=== PATIENT | female | born 1990 | race Caucasian/White ===

== ENCOUNTER 2022-05-24 19:48 | Inpatient (IN) | payer OTHER ==
[~2022-05-24] VITALS: Ht 149.9 cm; Wt 78.9 kg
[~2022-05-24 19:48] MED LIST: SRTR100T
[2022-05-24 20:00] VITALS: BP 126/86
[2022-05-24 20:56] LABS: BILIRUBIN,URINE NEGATIVE (NEGATIVE); CLARITY,URINE CLEAR; COLOR,URINE YELLOW; GLUCOSE, URINE (UA) NEGATIVE (NEGATIVE); KETONES,URINE NEGATIVE (NEGATIVE); LEUKOCYTE ESTERASE ,URINE NEGATIVE (NEGATIVE); NITRITE,URINE NEGATIVE (NEGATIVE); PROTEIN,URINE NEGATIVE (NEGATIVE)
[2022-05-24 21:00] VITALS: BP 126/86
[2022-05-24 21:11] LABS: BACTERIA,URINE LARGE /HPF; RBC,URINE 0-2 /HPF; SQUAMOUS EPITHELIAL CELL,UR >50 /HPF; WBC,URINE 0-2 /HPF
[2022-05-24] MEDS ORDERED: MINERAL OIL 30 ML UDC TOP PRN (23:00)
[2022-05-24] MEDS: D5 LR IV SOLUTION 1,000 ML IV SCH (23:27)
[2022-05-24] MEDS ORDERED: AMPICILLIN 2,000 MG/14.8 ML (IV USE) ONE (23:30)
[2022-05-24] MEDS ORDERED: NS (IVPB) 50 ML ONE (23:30)
[2022-05-25] VITALS (69 sets, daily range): BP systolic 96–138; BP diastolic 55–87
[2022-05-25 03:42] LABS: HEMATOCRIT 34 % (35-52); HEMOGLOBIN 11.9 g/dL (11.5-16.0); MEAN CORPUSCULAR HEMOGLOBIN 30 pg (25-34); MEAN CORPUSCULAR VOLUME 85 fL (80-99); WHITE BLOOD COUNT 15.6 10^3/uL (4.3-11.0)
[2022-05-25 03:43] LABS: EOSINOPHILS % (AUTO) 1 % (0-10); LYMPHOCYTES % (AUTO) 14 % (12-44); MEAN CORPUSCULAR HGB CONC 35 g/dL (32-36); MEAN PLATELET VOLUME 11.5 fL (9.0-12.2); MONOCYTES % (AUTO) 6 % (0-12); NEUTROPHILS % (AUTO) 79 % (42-75); PLATELET COUNT 235 10^3/uL (130-400)
[2022-05-25 03:44] LABS: BASOPHILS % (AUTO) 0 % (0-10); EOSINOPHILS # (AUTO) 0.1 10^3/uL (0.0-0.3); LYMPHOCYTES # (AUTO) 2.2 X 10^3 (1.0-4.0); MONOCYTES # (AUTO) 0.9 X 10^3 (0.0-1.0); NEUTROPHILS # (AUTO) 12.7 X 10^3 (1.8-7.8)
[2022-05-25] MEDS: AMPICILLIN FOR IV USE 1,000 MG in NS (IVPB) 50 ML IV SCH ×5 (03:49→18:58)
[2022-05-25] MEDS: CATHETER FLUSH 10 ML SYR IV SCH ×2 (06:53→14:00)
[2022-05-25] MEDS ORDERED: LACTATED RINGERS 1,000 ML IV PRN (08:15)
[2022-05-25] MEDS: D5 LR IV SOLUTION 1,000 ML IV SCH ×3 (08:18→20:45)
[2022-05-25] MEDS ORDERED: fentaNYL 2 mcg/ml BUPIVA 0.125 100 ML ONE (08:40)
--- NOTE | 2022-05-25 08:52 | History & Physical-OB ---
OB - Chief Complaint & HPI Date/Time Date of Admission: Date of Admission: May 24, 2022 at 22:54 Date seen by a Provider: May 25, 2022 Time Seen by a Provider: 08:15 Chief Complaint/History OB-Reason for Admission/Chief: Rupture of Membranes Hx : 2 Hx Para: 0 Expected Date of Delivery: May 25, 2022 Gestational Age in Weeks: 40 Gestational Age in Days: 0 History of Labs A pos, antibody neg. RI. HIV/HepB/RPR neg. 1 hour glucola neg. GBS positive. Other 31 yo at 40 weeks today, on 05/23 at her routine Ob visit she noted she thought she might have some intermittent trickling of fluid, at that time sterile spec exam was negative for pooling, ferning and pH normal. She had an US with an MAGGIE of 9.1. On 05/24 she presented to Labor and Delivery with contractions and found to be 5 cm. After observation on Labor and Delivery she reported she felt a gush of fluid and ROM plus test was positive. She continued to progress through labor spontaneously. This morning, at time of my exam, she had bulging bag. Allergies and Home Medications Allergies Uncoded Allergies: NKDA (Allergy, Mild, 08/17/08) Patient Home Medication List Home Medication List Reviewed: Yes Vit No.124/Iron/FA ( Vitamin Tablet) 27 Mg Iron-800 Mcg Tablet, 1 EACH PO DAILY, (Reported) Entered as Reported by: QUANG DELCID on 05/25/22 1516 Last Action: New Order Discontinued Medications Sertraline Hcl (Zoloft) 100 Mg Tablet, (Reported) Entered as Reported by: ANDRE GLYNN on 08/17/08 0040 Last Action: Discontinued OB - History Hx of Present Ultrasounds: Normal mid trimester US Obstetrical Complications: None Medical Complications: None Information Induced Hypertension: No Maternal Gestational Diabetes: No Hemorrhage: No Obstetrical History Hx : 2 Hx Para: 0 Hx # Term Pregnancies: 0 Hx # Pregnancies: 0 Number of Living Children: 0 Hx Termination: No Hx Multiple Gestation: No Hx Ectopic : No Hx Stillbirth: No Hx Complication: No Hx Induced Hypertens: No Hx Maternal Gestational Diabet: No Hx Hemorrhage: No Patient Past Medical History PMHx: Denies SurgHx: Denies Social History/Family History Alcohol Use: Denies Use Recreational Drug Use: No Smoking Cessation: Never smoker Immunizations Influenza Vaccine Up-to-Date: No; Not Current First/Initial COVID19 Vaccine: 03/26/20 Second COVID19 Vaccination: 04/22/20 Third COVID19 Vaccination Date: 03/12/21 Tetanus Booster (TDap): Less than 5yrs (03/17/22) Rubella: immune RPR/VDRL: Negative GBS Status: Positive HBsAG: Negative OB - Admission Exam Physical Exam Vitals: Vital Signs 05/25/22 07:20 Temp 36.1 Pulse 94 Resp 18 B/P (MAP) 122/73 (89) Pulse Ox 97 O2 Delivery Room Air HEENT: NCAT Abdomen: Non tender Extremities: Normal Cervical Dilatation: 6cm Effacement: Other (90) Station: -3 Membranes: Ruptured (possible earlier rupture per HPI, bag AROM at time of exam) Amniotic Fluid: Clear Accelerations: Accelerations Present Decelerations: No Decelerations Short Term Variability: Present Bonsai Tender Variability: Average (6-25) Contractions on Admission: < 5 Minutes Apart Labs Laboratory Tests Test 05/24/22 20:00 05/24/22 22:30 05/24/22 23:42 Range/Units Urine Color YELLOW Urine Clarity CLEAR Urine pH 7.0 5-9 Urine Specific [place] 1.015 L 1.016-1.022 Urine Protein NEGATIVE NEGATIVE Urine Glucose (UA) NEGATIVE NEGATIVE Urine Ketones NEGATIVE NEGATIVE Urine Nitrite NEGATIVE NEGATIVE Urine Bilirubin NEGATIVE NEGATIVE Urine Urobilinogen 0.2 < = 1.0 MG/DL Urine Leukocyte Esterase NEGATIVE NEGATIVE Urine RBC (Auto) 3+ H NEGATIVE Urine RBC 0-2 /HPF Urine WBC 0-2 /HPF Urine Squamous Epithelial Cells >50 H /HPF Urine Crystals NONE /LPF Urine Bacteria LARGE H /HPF Urine Casts NONE /LPF Urine Mucus NEGATIVE /LPF Urine Culture Indicated NO Membranes Rupture POSITIVE White Blood Count 15.6 H 4.3-11.0 10^3/uL Red Blood Count 4.03 3.80-5.11 10^6/uL Hemoglobin 11.9 11.5-16.0 g/dL Hematocrit 34 L 35-52 % Mean Corpuscular Volume 85 80-99 fL Mean Corpuscular Hemoglobin 30 25-34 pg Mean Corpuscular Hemoglobin Concent 35 32-36 g/dL Red Cell Distribution Width 13.4 10.0-14.5 % Platelet Count 235 130-400 10^3/uL Mean Platelet Volume 11.5 9.0-12.2 fL Immature Granulocyte % (Auto) 0 % Neutrophils (%) (Auto) 79 H 42-75 % Lymphocytes (%) (Auto) 14 12-44 % Monocytes (%) (Auto) 6 0-12 % Eosinophils (%) (Auto) 1 0-10 % Basophils (%) (Auto) 0 0-10 % Neutrophils # (Auto) 12.7 H 1.8-7.8 X 10^3 Lymphocytes # (Auto) 2.2 1.0-4.0 X 10^3 Monocytes # (Auto) 0.9 0.0-1.0 X 10^3 Eosinophils # (Auto) 0.1 0.0-0.3 10^3/uL Basophils # (Auto) 0.0 0.0-0.1 10^3/uL Immature Granulocyte # (Auto) 0.1 0.0-0.1 10^3/uL OB - Assessment/Plan/Diagnosis Assessment Admission Dx Active labor at full term 40 weeks gestation GBS positive Admission Status: Inpatient Order (span 2 midnights) Reason for Inpatient Admission: Labor, delivery and course Plan Plan: Expectant Management (AROM of forebag done at time of exam, ampicillin for GBS positive) QUANG DELCID MD May 25, 2022 08:52
[2022-05-25] MEDS ORDERED: BUPIVACAINE 0.25% 10 ML (SENSORCAINE) VIAL ONE (09:26)
[2022-05-25] MEDS ORDERED: fentaNYL INJ 100 MCG/2 ML AMP ONE (09:26)
[2022-05-25] MEDS ORDERED: LACTATED RINGERS 1,000 ML IV ONE ×2 (10:00)
[2022-05-25] MEDS ORDERED: fentaNYL INJ 100 MCG/2 ML AMP INJ ONE (10:00)
[2022-05-25] MEDS ORDERED: NALOXONE 0.4 MG/ML 1 ML (NARCAN) VIAL IV PRN (10:00)
[2022-05-25] MEDS ORDERED: ONDANSETRON 4 MG/2 ML (SDV) Z0FRAN IV PRN (10:00)
[2022-05-25] MEDS: fentaNYL 2 mcg/ml BUPIVA 0.125 100 ML EPI SCH ×2 (10:03→17:47)
[2022-05-25] MEDS ORDERED: OXYTOCIN PRE-MIX DRIP 500 ML IV ONE (13:57)
[2022-05-25] MEDS ORDERED: OXYTOCIN PRE-MIX DRIP 500 ML IV SCH ×2 (14:30→23:15)
[2022-05-25] MEDS ORDERED: PREN-142 PO (15:16)
--- NOTE | 2022-05-25 15:31 | Labor Progress Note ---
Labor Progress Note Labor Progress Note Date Seen by Provider: May 25, 2022 Time Seen by Provider: 14:15 Subjective: Pt denies complaints. Objective: Cervical exam: /-2 Consistency: soft Position: anterior Presentation: vertex heart tones: 150 beats per minute, moderate variability, no decels Tocometer: 2-3 ctx/10 minutes Assessment/Plan: Shama Johns is a 31 /Para 2 / 0,Gestational Age (wks)40 here for active labor. Has had periods of tachycardia and decreased variability, but other periods reassuring. Afebrile. Contractions q2-5 and has had minimal change from last check 2 hours ago, discussed augmentation with pitocin given concern for prolonged rupture and intermittent mild tachycardia, and patient was in agreement. CEFM/TOCO Start pitocin Anesthesia: Epidural Anticipate vaginal delivery. Vitals - Labs Vital Signs - I&O Vital Signs Date Time Temp Pulse Resp B/P (MAP) Pulse Ox O2 Delivery O2 Flow Rate FiO2 05/25/22 14:50 86 18 120/69 (86) Room Air 05/25/22 14:35 110 18 106/66 (79) Room Air 05/25/22 14:20 111 18 111/67 (82) Room Air 05/25/22 14:05 36.6 95 18 114/70 (85) Room Air 05/25/22 13:50 90 18 121/74 (90) Room Air 05/25/22 13:35 107 18 124/79 (94) Room Air 05/25/22 13:20 90 18 121/76 (91) Room Air 05/25/22 13:05 36.7 93 18 127/76 (93) Room Air 05/25/22 12:50 93 18 123/73 (90) Room Air 05/25/22 12:35 116 18 123/77 (92) Room Air 05/25/22 12:20 115 18 126/74 (91) Room Air 05/25/22 12:05 121 18 122/71 (88) Room Air 05/25/22 11:50 89 18 118/67 (84) Room Air 05/25/22 11:35 36.3 114 18 129/84 (99) Room Air 05/25/22 11:20 95 18 127/70 (89) Room Air 05/25/22 11:05 86 18 130/77 (94) Room Air 05/25/22 10:50 36.0 111 18 109/58 (75) Room Air 05/25/22 10:35 89 18 115/55 (75) Room Air 05/25/22 10:30 83 18 111/59 (76) Room Air 05/25/22 10:28 77 18 110/57 (74) Room Air 05/25/22 10:26 82 18 96/56 (69) Room Air 05/25/22 10:15 108 18 110/75 (87) Room Air 05/25/22 10:15 36.0 05/25/22 10:10 87 18 121/68 (85) Room Air 05/25/22 10:05 94 18 117/69 (85) Room Air 05/25/22 10:00 95 18 110/64 (79) Room Air 05/25/22 09:55 96 18 109/62 (78) Room Air 05/25/22 09:50 96 18 117/69 (85) Room Air 05/25/22 09:45 98 18 117/71 (86) Room Air 05/25/22 09:42 104 18 116/73 (87) Room Air 05/25/22 09:39 107 18 112/68 (83) Room Air 05/25/22 09:36 104 18 123/72 (89) 97 Room Air 05/25/22 09:33 110 18 121/71 (88) 98 Room Air 05/25/22 09:30 113 18 125/87 (100) 97 Room Air 05/25/22 09:00 36.4 112 18 136/82 (100) Room Air 05/25/22 08:10 36.1 05/25/22 07:20 36.1 94 18 122/73 (89) 97 Room Air 05/25/22 07:00 Room Air 05/25/22 06:00 Room Air 05/25/22 05:00 Room Air 05/25/22 04:00 Room Air 05/25/22 03:00 92 18 125/82 (96) Room Air 05/25/22 02:00 36.6 18 Room Air 05/25/22 01:00 36.9 93 18 119/78 (92) Room Air 05/25/22 00:00 18 Room Air 05/24/22 23:00 18 Room Air 05/24/22 22:00 18 Room Air 05/24/22 21:00 36.8 96 18 126/86 (99) 96 Room Air 05/24/22 20:00 36.8 96 18 96 Room Air I & O 05/25/22 07:00 Intake Total 114.8 ml Balance 114.8 ml Labs Laboratory Tests 05/24/22 20:00: Urine Color YELLOW, Urine Clarity CLEAR, Urine pH 7.0, Urine Specific [place] 1.015L, Urine Protein NEGATIVE, Urine Glucose (UA) NEGATIVE, Urine Ketones NEGATIVE, Urine Nitrite NEGATIVE, Urine Bilirubin NEGATIVE, Urine Urobilinogen 0.2, Urine Leukocyte Esterase NEGATIVE, Urine RBC (Auto) 3+H, Urine RBC 0-2, Urine WBC 0-2, Urine Squamous Epithelial Cells >50H, Urine Crystals NONE, Urine Bacteria LARGEH, Urine Casts NONE, Urine Mucus NEGATIVE, Urine Culture Indicated NO 05/24/22 22:30: Membranes Rupture POSITIVE 05/24/22 23:42: White Blood Count 15.6H, Red Blood Count 4.03, Hemoglobin 11.9, Hematocrit 34L, Mean Corpuscular Volume 85, Mean Corpuscular Hemoglobin 30, Mean Corpuscular Hemoglobin Concent 35, Red Cell Distribution Width 13.4, Platelet Count 235, Mean Platelet Volume 11.5, Immature Granulocyte % (Auto) 0, Neutrophils (%) (Auto) 79H, Lymphocytes (%) (Auto) 14, Monocytes (%) (Auto) 6, Eosinophils (%) (Auto) 1, Basophils (%) (Auto) 0, Neutrophils # (Auto) 12.7H, Lymphocytes # (Auto) 2.2, Monocytes # (Auto) 0.9, Eosinophils # (Auto) 0.1, Basophils # (Auto) 0.0, Immature Granulocyte # (Auto) 0.1 QUANG DELCID MD May 25, 2022 15:31
[2022-05-25 16:17] LABS: BASOPHILS % (AUTO) 0 % (0-10); EOSINOPHILS % (AUTO) 0 % (0-10); HEMATOCRIT 35 % (35-52); HEMOGLOBIN 11.7 g/dL (11.5-16.0); LYMPHOCYTES # (AUTO) 1.1 X 10^3 (1.0-4.0); LYMPHOCYTES % (AUTO) 6 % (12-44); MEAN CORPUSCULAR HEMOGLOBIN 30 pg (25-34); MEAN CORPUSCULAR HGB CONC 34 g/dL (32-36); MEAN CORPUSCULAR VOLUME 87 fL (80-99); MEAN PLATELET VOLUME 11.4 fL (9.0-12.2); MONOCYTES % (AUTO) 5 % (0-12); NEUTROPHILS # (AUTO) 16.1 X 10^3 (1.8-7.8); NEUTROPHILS % (AUTO) 88 % (42-75); PLATELET COUNT 219 10^3/uL (130-400); WHITE BLOOD COUNT 18.2 10^3/uL (4.3-11.0)
--- NOTE | 2022-05-25 18:53 | Labor Progress Note ---
Labor Progress Note Labor Progress Note Date Seen by Provider: May 25, 2022 Time Seen by Provider: 18:35 Subjective: Pt denies complaints. Objective: Cervical exam: Anterior lip/90/+1 Consistency: soft Position: anterior Presentation: vertex heart tones: 160 beats per minute, minimal variability, accel noted with scalp stim Tocometer: 5 ctx/10 minutes Assessment/Plan: Shama Johns is a (31 /Para 2 / 0,Gestational Age (wks)40 here for active labor. status has continued to be intermittently category II with minimal variability without decelerations, but also with periods of moderate variability. At time of exam, acceleration occurred with check, and she is nearing completion. Continue to monitor closely. CEFM/TOCO Continue pitocin Anesthesia: Epidural Anticipate vaginal delivery. Vitals - Labs Vital Signs - I&O Vital Signs Date Time Temp Pulse Resp B/P (MAP) Pulse Ox O2 Delivery O2 Flow Rate FiO2 05/25/22 18:35 36.4 95 18 120/74 (89) Room Air 05/25/22 18:05 99 18 121/77 (92) Room Air 05/25/22 17:50 88 18 122/77 (92) Room Air 05/25/22 17:35 86 18 113/75 (88) Room Air 05/25/22 17:20 35.6 86 18 133/77 (95) Room Air 05/25/22 17:05 83 18 130/77 (94) Room Air 05/25/22 16:35 85 18 138/85 (102) 98 Room Air 05/25/22 16:20 83 18 134/82 (99) 98 Room Air 05/25/22 16:05 36.7 99 18 129/72 (91) 96 Room Air 05/25/22 15:50 85 18 112/61 (78) Room Air 05/25/22 15:35 85 18 104/56 (72) Room Air 05/25/22 15:20 105 18 112/63 (79) Room Air 05/25/22 15:05 37.6 93 18 119/66 (83) Room Air 05/25/22 14:50 86 18 120/69 (86) Room Air 05/25/22 14:35 110 18 106/66 (79) Room Air 05/25/22 14:20 111 18 111/67 (82) Room Air 05/25/22 14:05 36.6 95 18 114/70 (85) Room Air 05/25/22 13:50 90 18 121/74 (90) Room Air 05/25/22 13:35 107 18 124/79 (94) Room Air 05/25/22 13:20 90 18 121/76 (91) Room Air 05/25/22 13:05 36.7 93 18 127/76 (93) Room Air 05/25/22 12:50 93 18 123/73 (90) Room Air 05/25/22 12:35 116 18 123/77 (92) Room Air 05/25/22 12:20 115 18 126/74 (91) Room Air 05/25/22 12:05 121 18 122/71 (88) Room Air 05/25/22 11:50 89 18 118/67 (84) Room Air 05/25/22 11:35 36.3 114 18 129/84 (99) Room Air 05/25/22 11:20 95 18 127/70 (89) Room Air 05/25/22 11:05 86 18 130/77 (94) Room Air 05/25/22 10:50 36.0 111 18 109/58 (75) Room Air 05/25/22 10:35 89 18 115/55 (75) Room Air 05/25/22 10:30 83 18 111/59 (76) Room Air 05/25/22 10:28 77 18 110/57 (74) Room Air 05/25/22 10:26 82 18 96/56 (69) Room Air 05/25/22 10:15 108 18 110/75 (87) Room Air 05/25/22 10:15 36.0 05/25/22 10:10 87 18 121/68 (85) Room Air 05/25/22 10:05 94 18 117/69 (85) Room Air 05/25/22 10:00 95 18 110/64 (79) Room Air 05/25/22 09:55 96 18 109/62 (78) Room Air 05/25/22 09:50 96 18 117/69 (85) Room Air 05/25/22 09:45 98 18 117/71 (86) Room Air 05/25/22 09:42 104 18 116/73 (87) Room Air 05/25/22 09:39 107 18 112/68 (83) Room Air 05/25/22 09:36 104 18 123/72 (89) 97 Room Air 05/25/22 09:33 110 18 121/71 (88) 98 Room Air 05/25/22 09:30 113 18 125/87 (100) 97 Room Air 05/25/22 09:00 36.4 112 18 136/82 (100) Room Air 05/25/22 08:10 36.1 05/25/22 07:20 36.1 94 18 122/73 (89) 97 Room Air 05/25/22 07:00 18 82 Room Air 05/25/22 06:00 Room Air 05/25/22 05:00 Room Air 05/25/22 04:00 Room Air 05/25/22 03:00 92 18 125/82 (96) Room Air 05/25/22 02:00 36.6 18 Room Air 05/25/22 01:00 36.9 93 18 119/78 (92) Room Air 05/25/22 00:00 18 Room Air 05/24/22 23:00 18 Room Air 05/24/22 22:00 18 Room Air 05/24/22 21:00 36.8 96 18 126/86 (99) 96 Room Air 05/24/22 20:00 36.8 96 18 96 Room Air I & O 05/25/22 07:00 Intake Total 114.8 ml Balance 114.8 ml Labs Laboratory Tests 05/24/22 20:00: Urine Color YELLOW, Urine Clarity CLEAR, Urine pH 7.0, Urine Specific [place] 1.015L, Urine Protein NEGATIVE, Urine Glucose (UA) NEGATIVE, Urine Ketones NEGATIVE, Urine Nitrite NEGATIVE, Urine Bilirubin NEGATIVE, Urine Urobilinogen 0.2, Urine Leukocyte Esterase NEGATIVE, Urine RBC (Auto) 3+H, Urine RBC 0-2, Urine WBC 0-2, Urine Squamous Epithelial Cells >50H, Urine Crystals NONE, Urine Bacteria LARGEH, Urine Casts NONE, Urine Mucus NEGATIVE, Urine Culture Indicated NO 05/24/22 22:30: Membranes Rupture POSITIVE 05/24/22 23:42: White Blood Count 15.6H, Red Blood Count 4.03, Hemoglobin 11.9, Hematocrit 34L, Mean Corpuscular Volume 85, Mean Corpuscular Hemoglobin 30, Mean Corpuscular Hemoglobin Concent 35, Red Cell Distribution Width 13.4, Platelet Count 235, Mean Platelet Volume 11.5, Immature Granulocyte % (Auto) 0, Neutrophils (%) (Auto) 79H, Lymphocytes (%) (Auto) 14, Monocytes (%) (Auto) 6, Eosinophils (%) (Auto) 1, Basophils (%) (Auto) 0, Neutrophils # (Auto) 12.7H, Lymphocytes # (Auto) 2.2, Monocytes # (Auto) 0.9, Eosinophils # (Auto) 0.1, Basophils # (Auto) 0.0, Immature Granulocyte # (Auto) 0.1 05/25/22 15:50: White Blood Count 18.2H, Red Blood Count 3.97, Hemoglobin 11.7, Hematocrit 35, Mean Corpuscular Volume 87, Mean Corpuscular Hemoglobin 30, Mean Corpuscular Hemoglobin Concent 34, Red Cell Distribution Width 13.5, Platelet Count 219, Mean Platelet Volume 11.4, Immature Granulocyte % (Auto) 0, Neutrophils (%) (A uto) 88H, Lymphocytes (%) (Auto) 6L, Monocytes (%) (Auto) 5, Eosinophils (%) (Auto) 0, Basophils (%) (Auto) 0, Neutrophils # (Auto) 16.1H, Lymphocytes # (Auto) 1.1, Monocytes # (Auto) 1.0, Eosinophils # (Auto) 0.0, Basophils # (Auto) 0.0, Immature Granulocyte # (Auto) 0.0 QUANG DELCID MD May 25, 2022 18:53
[2022-05-25] MEDS ORDERED: LIDOCAINE 1% INJ 10 ML VIAL ONE (22:23)
[2022-05-25] MEDS ORDERED: AMPICILLIN FOR IV USE 2,000 MG in NS (IVPB) 50 ML IV ONE (22:54)
--- NOTE | 2022-05-25 23:12 | OB Labor & Delivery Record ---
Vag Delivery Note Vag Delivery Note Date of Delivery: 05/25/22 Preoperative Diagnosis: Shama Johns is a (31 /Para 2 / 0, Gestational Age (wks)40with 0 days Postoperative Diagnosis: Same Surgeon: QUANG DELCID Anesthesia: Epidural Delivery Type: Findings: Viable female infant, apgars 8/8, weight 6#6 Lacerations: second degree perineal laceration Intact placenta with 3 vessel cord. No nuchal cord, body cord or shoulder dystocia Estimated Blood Loss: 250 ml Complications: None Condition: Stable Description of Procedure: The patient is a 31 year old female who presented in active labor. She was admitted and informed consent was obtained. Her labor course was remarkable for meconium stained fluid and prolonged active phase. She progressed to complete dilatation and began to push. She was then set up for delivery. The infant's head was delivered atraumatically in the OP position. The shoulders and remainder of the infant's body were then delivered without difficulty. Upon delivery, the was vigorous and placed on maternal chest and the mouth and nares were bulb suctioned. After a delay cord was doubly clamped and cut and the remained on maternal chest. An intact placenta with 3-vessel cord delivered via [place] and there was found to be minimal bleeding.~ Vigorous fundal massage was performed and the fundus was found to be firm. IV oxytocin was given. Examination of the vagina and perineum revealed a second degree perineal laceration repaired in the usual fashion with 3-0 vicryl rapide suture. Following the repair, sponge, instrument and needle counts were correct. Mom and baby were both in stable condition in the labor suite. Vitals - Labs Vital Signs - I&O Vital Signs Date Time Temp Pulse Resp B/P (MAP) Pulse Ox O2 Delivery O2 Flow Rate FiO2 05/25/22 18:50 80 18 123/77 (92) Room Air 05/25/22 18:35 36.4 95 18 120/74 (89) Room Air 05/25/22 18:05 99 18 121/77 (92) Room Air 05/25/22 17:50 88 18 122/77 (92) Room Air 05/25/22 17:35 86 18 113/75 (88) Room Air 05/25/22 17:20 35.6 86 18 133/77 (95) Room Air 05/25/22 17:05 83 18 130/77 (94) Room Air 05/25/22 16:35 85 18 138/85 (102) 98 Room Air 05/25/22 16:20 83 18 134/82 (99) 98 Room Air 05/25/22 16:05 36.7 99 18 129/72 (91) 96 Room Air 05/25/22 15:50 85 18 112/61 (78) Room Air 05/25/22 15:35 85 18 104/56 (72) Room Air 05/25/22 15:20 105 18 112/63 (79) Room Air 05/25/22 15:05 37.6 93 18 119/66 (83) Room Air 05/25/22 14:50 86 18 120/69 (86) Room Air 05/25/22 14:35 110 18 106/66 (79) Room Air 05/25/22 14:20 111 18 111/67 (82) Room Air 05/25/22 14:05 36.6 95 18 114/70 (85) Room Air 05/25/22 13:50 90 18 121/74 (90) Room Air 05/25/22 13:35 107 18 124/79 (94) Room Air 05/25/22 13:20 90 18 121/76 (91) Room Air 05/25/22 13:05 36.7 93 18 127/76 (93) Room Air 05/25/22 12:50 93 18 123/73 (90) Room Air 05/25/22 12:35 116 18 123/77 (92) Room Air 05/25/22 12:20 115 18 126/74 (91) Room Air 05/25/22 12:05 121 18 122/71 (88) Room Air 05/25/22 11:50 89 18 118/67 (84) Room Air 05/25/22 11:35 36.3 114 18 129/84 (99) Room Air 05/25/22 11:20 95 18 127/70 (89) Room Air 05/25/22 11:05 86 18 130/77 (94) Room Air 05/25/22 10:50 36.0 111 18 109/58 (75) Room Air 05/25/22 10:35 89 18 115/55 (75) Room Air 05/25/22 10:30 83 18 111/59 (76) Room Air 05/25/22 10:28 77 18 110/57 (74) Room Air 05/25/22 10:26 82 18 96/56 (69) Room Air 05/25/22 10:15 108 18 110/75 (87) Room Air 05/25/22 10:15 36.0 05/25/22 10:10 87 18 121/68 (85) Room Air 05/25/22 10:05 94 18 117/69 (85) Room Air 05/25/22 10:00 95 18 110/64 (79) Room Air 05/25/22 09:55 96 18 109/62 (78) Room Air 05/25/22 09:50 96 18 117/69 (85) Room Air 05/25/22 09:45 98 18 117/71 (86) Room Air 05/25/22 09:42 104 18 116/73 (87) Room Air 05/25/22 09:39 107 18 112/68 (83) Room Air 05/25/22 09:36 104 18 123/72 (89) 97 Room Air 05/25/22 09:33 110 18 121/71 (88) 98 Room Air 05/25/22 09:30 113 18 125/87 (100) 97 Room Air 05/25/22 09:00 36.4 112 18 136/82 (100) Room Air 05/25/22 08:10 36.1 05/25/22 07:20 36.1 94 18 122/73 (89) 97 Room Air 05/25/22 07:00 Room Air 05/25/22 06:00 Room Air 05/25/22 05:00 Room Air 05/25/22 04:00 Room Air 05/25/22 03:00 92 18 125/82 (96) Room Air 05/25/22 02:00 36.6 18 Room Air 05/25/22 01:00 36.9 93 18 119/78 (92) Room Air 05/25/22 00:00 18 Room Air I & O 05/25/22 07:00 Intake Total 114.8 ml Balance 114.8 ml Labs Laboratory Tests 05/24/22 23:42: White Blood Count 15.6H, Red Blood Count 4.03, Hemoglobin 11.9, Hematocrit 34L, Mean Corpuscular Volume 85, Mean Corpuscular Hemoglobin 30, Mean Corpuscular Hemoglobin Concent 35, Red Cell Distribution Width 13.4, Platelet Count 235, Mean Platelet Volume 11.5, Immature Granulocyte % (Auto) 0, Neutrophils (%) (Auto) 79H, Lymphocytes (%) (Auto) 14, Monocytes (%) (Auto) 6, Eosinophils (%) (Auto) 1, Basophils (%) (Auto) 0, Neutrophils # (Auto) 12.7H, Lymphocytes # (Auto) 2.2, Monocytes # (Auto) 0.9, Eosinophils # (Auto) 0.1, Basophils # (Auto) 0.0, Immature Granulocyte # (Auto) 0.1, Syphilis Serology Non-Reactive 05/25/22 15:50: White Blood Count 18.2H, Red Blood Count 3.97, Hemoglobin 11.7, Hematocrit 35, Mean Corpuscular Volume 87, Mean Corpuscular Hemoglobin 30, Mean Corpuscular Hemoglobin Concent 34, Red Cell Distribution Width 13.5, Platelet Count 219, Mean Platelet Volume 11.4, Immature Granulocyte % (Auto) 0, Neutrophils (%) (Auto) 88H, Lymphocytes (%) (Auto) 6L, Monocytes (%) (Auto) 5, Eosinophils (%) (Auto) 0, Basophils (%) (Auto) 0, Neutrophils # (Auto) 16.1H, Lymphocytes # (Auto) 1.1, Monocytes # (Auto) 1.0, Eosinophils # (Auto) 0.0, Basophils # (Auto) 0.0, Immature Granulocyte # (Auto) 0.0 QUANG DELCID MD May 25, 2022 23:12
[2022-05-25] MEDS ORDERED: BENZOCAINE/MENTHOL (DERMOPLAST) 56 ML CAN TP PRN (23:15)
[2022-05-25] MEDS ORDERED: WITCH HAZEL(TUCKS) 40 EA JAR TOP PRN (23:15)
[2022-05-26] VITALS (7 sets, daily range): BP systolic 107–124; BP diastolic 59–71
[2022-05-26] MEDS: IBUPROFEN 600 MG (MOTRIN) TAB PO SCH ×4 (00:03→18:27)
[2022-05-26] MEDS ORDERED: CATHETER FLUSH 10 ML SYR IV SCH (06:00)
[2022-05-26] MEDS: DOCUSATE SODIUM 100 MG (COLACE) CAP PO SCH ×2 (08:53→20:47)
[2022-05-26] MEDS: PRENATAL VITAMIN 1 EA TAB PO SCH (08:53)
[2022-05-26 09:31] LABS: EOSINOPHILS # (AUTO) 0.1 10^3/uL (0.0-0.3); EOSINOPHILS % (AUTO) 0 % (0-10); HEMOGLOBIN 10.4 g/dL (11.5-16.0); MEAN CORPUSCULAR VOLUME 88 fL (80-99)
[2022-05-26 09:32] LABS: BASOPHILS % (AUTO) 0 % (0-10); HEMATOCRIT 31 % (35-52); LYMPHOCYTES # (AUTO) 1.8 10^3/uL (1.0-4.0); LYMPHOCYTES % (AUTO) 11 % (12-44); MEAN CORPUSCULAR HEMOGLOBIN 30 pg (25-34); MEAN CORPUSCULAR HGB CONC 34 g/dL (32-36); MEAN PLATELET VOLUME 11.7 fL (9.0-12.2); MONOCYTES # (AUTO) 0.9 10^3/uL (0.0-1.0); MONOCYTES % (AUTO) 6 % (0-12); NEUTROPHILS # (AUTO) 13.5 10^3/uL (1.8-7.8); NEUTROPHILS % (AUTO) 82 % (42-75); PLATELET COUNT 182 10^3/uL (130-400); WHITE BLOOD COUNT 16.4 10^3/uL (4.3-11.0)
--- NOTE | 2022-05-26 12:03 | Postpartum Progress Note ---
EVA VELARDE 05/26/22 1203: Note Note Day # 1 Subjective: Patient is without complaints. Ambulating, voiding. Tolerating a regular diet without nausea or vomiting. Normal lochia. Pain is well controlled with oral pain medications. Breast feeding. Objective: Patient is lying in bed at time of evaluation, no signs of distress. Physical Exam: General - Alert and oriented, no apparent distress Heart- regular rhythm and rate, no murmurs Lungs- clear to auscultation bilaterally, no rales, wheezing, or rhonchi Abdomen - Soft, appropriately tender to palpation, non-distended, fundus firm at umbilicus Extremities - 1+ lower extremity edema, negative Ramon's bilaterally Assessment: 31F post- day #1, status post spontaneous vaginal delivery. anemia. Recovering well, hemodynamically stable Plan: Routine care. Encourage breast feeding. Encourage ambulation. Ferrous sulfate supplementation. Plan for discharge tomorrow Vitals - Labs Vital Signs - I&O Vital Signs Date Time Temp Pulse Resp B/P (MAP) Pulse Ox O2 Delivery O2 Flow Rate FiO2 05/26/22 08:57 36.7 97 18 107/61 (76) 97 Room Air 05/26/22 05:45 36.6 72 16 118/71 (87) Room Air 05/26/22 01:30 37.2 110 18 124/63 (83) Room Air 05/26/22 00:00 112 18 114/59 (77) Room Air 05/25/22 22:20 37.5 88 18 123/70 (87) Room Air 05/25/22 22:04 100 18 124/71 (88) Room Air 05/25/22 21:50 101 18 123/70 (87) Room Air 05/25/22 21:35 127 18 119/65 (83) Room Air 05/25/22 21:25 122 18 120/66 (84) Room Air 05/25/22 21:05 97 18 114/60 (78) Room Air 05/25/22 20:50 79 18 115/60 (78) Room Air 05/25/22 20:35 37.0 79 18 107/58 (74) Room Air 05/25/22 20:25 86 18 124/62 (82) Room Air 05/25/22 20:05 90 18 120/75 (90) Room Air 05/25/22 19:50 103 18 121/73 (89) Room Air 05/25/22 19:40 81 18 123/72 (89) Room Air 05/25/22 19:20 81 18 120/71 (87) Room Air 05/25/22 19:05 36.9 80 18 124/74 (91) Room Air 05/25/22 18:50 80 18 123/77 (92) Room Air 05/25/22 18:35 36.4 95 18 120/74 (89) Room Air 05/25/22 18:05 99 18 121/77 (92) Room Air 05/25/22 17:50 88 18 122/77 (92) Room Air 05/25/22 17:35 86 18 113/75 (88) Room Air 05/25/22 17:20 35.6 86 18 133/77 (95) Room Air 05/25/22 17:05 83 18 130/77 (94) Room Air 05/25/22 16:35 85 18 138/85 (102) 98 Room Air 05/25/22 16:20 83 18 134/82 (99) 98 Room Air 05/25/22 16:05 36.7 99 18 129/72 (91) 96 Room Air 05/25/22 15:50 85 18 112/61 (78) Room Air 05/25/22 15:35 85 18 104/56 (72) Room Air 05/25/22 15:20 105 18 112/63 (79) Room Air 05/25/22 15:05 37.6 93 18 119/66 (83) Room Air 05/25/22 14:50 86 18 120/69 (86) Room Air 05/25/22 14:35 110 18 106/66 (79) Room Air 05/25/22 14:20 111 18 111/67 (82) Room Air 05/25/22 14:05 36.6 95 18 114/70 (85) Room Air 05/25/22 13:50 90 18 121/74 (90) Room Air 05/25/22 13:35 107 18 124/79 (94) Room Air 05/25/22 13:20 90 18 121/76 (91) Room Air 05/25/22 13:05 36.7 93 18 127/76 (93) Room Air 05/25/22 12:50 93 18 123/73 (90) Room Air 05/25/22 12:35 116 18 123/77 (92) Room Air 05/25/22 12:20 115 18 126/74 (91) Room Air 05/25/22 12:05 121 18 122/71 (88) Room Air I & O 05/26/22 07:00 Intake Total 3105 ml Balance 3105 ml Labs Laboratory Tests 05/25/22 15:50: White Blood Count 18.2H, Red Blood Count 3.97, Hemoglobin 11.7, Hematocrit 35, M dahlia Corpuscular Volume 87, Mean Corpuscular Hemoglobin 30, Mean Corpuscular Hemoglobin Concent 34, Red Cell Distribution Width 13.5, Platelet Count 219, Mean Platelet Volume 11.4, Immature Granulocyte % (Auto) 0, Neutrophils (%) (Auto) 88H, Lymphocytes (%) (Auto) 6L, Monocytes (%) (Auto) 5, Eosinophils (%) (Auto) 0, Basophils (%) (Auto) 0, Neutrophils # (Auto) 16.1H, Lymphocytes # (Auto) 1.1, Monocytes # (Auto) 1.0, Eosinophils # (Auto) 0.0, Basophils # (Auto) 0.0, Immature Granulocyte # (Auto) 0.0 05/26/22 08:55: White Blood Count 16.4H, Red Blood Count 3.49L, Hemoglobin 10.4L, Hematocrit 31L , Mean Corpuscular Volume 88, Mean Corpuscular Hemoglobin 30, Mean Corpuscular Hemoglobin Concent 34, Red Cell Distribution Width 13.7, Platelet Count 182, Mean Platelet Volume 11.7, Immature Granulocyte % (Auto) 1, Neutrophils (%) (Auto) 82H, Lymphocytes (%) (Auto) 11L, Monocytes (%) (Auto) 6, Eosinophils (%) (Auto) 0, Basophils (%) (Auto) 0, Neutrophils # (Auto) 13.5H, Lymphocytes # (Auto) 1.8, Monocytes # (Auto) 0.9, Eosinophils # (Auto) 0.1, Basophils # (Auto) 0.0, Immature Granulocyte # (Auto) 0.1, Percent Immature Platelet Fraction 6.0 QUANG DELCID MD 05/26/22 6005: Supervisory-Addendum Brief Supervisory Addendum I personally have seen and evaluated the patient and performed my own physical exam which confirms that documented by the medical student, except I did not check Ramon's sign. I directed the documented assessment and plan. EVA VELARDE May 26, 2022 12:03 QUANG DELCID MD May 26, 2022 21:07
[2022-05-27] MEDS: IBUPROFEN 600 MG (MOTRIN) TAB PO SCH ×3 (01:36→08:55)
[2022-05-27 03:39] VITALS: BP 135/63
[2022-05-27] MEDS ORDERED: FERROUS SULF 325 MG (IRON) TAB PO SCH (07:00)
[2022-05-27] MEDS ORDERED: FERR325T24 PO (08:09)
[2022-05-27] MEDS ORDERED: IBUP-844 PO (08:09)
--- NOTE | 2022-05-27 08:11 | Discharge Inst-Women's Service ---
Discharge Inst-Women's Serv Depart Medication/Instructions New, Converted or Re-Newed RX: Transmitted to Pharmacy ([facility] in [facility]) Problems Reviewed?: Yes Consults/Follow Up Additional Follow Up: Yes (Follow-up with Dr. Coffey can 6 weeks) Activity Driving Instructions: No Driving for 1 Week Nothing Inside Vagina: No [place] (For 6 weeks) Diet Discharge Diet: Regular Diet Return to The Hospital For: As below Symptoms to Report to : Bleeding Excessive, Fever Over 101 Degrees F, Vaginal Discharge Foul For Any Problems or Questions: Contact Your Physician PADMAJA CHAN MD May 27, 2022 08:11
--- NOTE | 2022-05-27 08:16 | Discharge Summary ---
Diagnosis/Chief Complaint Date of Admission May 24, 2022 at 23:00 Date of Discharge May 27, 2022 Admission Diagnosis Admission Diagnosis 1. Intrauterine at 40 weeks gestation Discharge Diagnosis 1. Intrauterine at 40 weeks gestation Chief Complaint/HPI Chief Complaint/HPI 31 yo at 40 weeks on May 25, 2022 and on 05/23 at her routine Ob visit she noted she thought she might have some intermittent trickling of fluid, at that time sterile spec exam was negative for pooling, ferning and pH normal. She had an US with an MAGGIE of 9.1. On 05/24 she presented to Labor and Delivery with contractions and found to be 5 cm. After observation on Labor and Delivery she reported she felt a gush of fluid and ROM plus test was positive. Discharge Summary-OBS Procedures 1. Epidural per anesthesia 2. Spontaneous vaginal delivery 3. Repair of second-degree perineal laceration Discharge Physical Examination Allergies: Uncoded Allergies: NKDA (Allergy, Mild, 08/17/08) Vitals & I&Os Vital Sign - Last 12Hours Date Time Temp Pulse Resp B/P (MAP) Pulse Ox O2 Delivery O2 Flow Rate FiO2 05/27/22 03:39 37.1 77 20 135/63 (87) 100 Room Air General Appearance: Alert, Oriented X3 Respiratory: Clear to Auscultation Cardiovascular: Regular Rate Abdominal: Soft (With uterus firm) Psych/Mental Status: Mental Status NL Hospital Course Was the Problem List Reviewed?: Yes patient was admitted on the morning of May 25 with spontaneous rupture of membranes. She was noted to be dilated to 5 cm at that time. Ultimately she did receive epidural and continued labor pattern. Once at completion she delivered over a second-degree perineal laceration a term viable female. Infant was given Apgars of 8 at 1 minute and 8 at 5 minutes. And the weight noted to be 6 lbs. 6 oz. Following delivery patient underwent routine care orders. She had no complications during the remainder of stay. It was noted her hemoglobin was 11.9 on admission and 10.4 on dismissal. She was placed on iron replacement and tolerated well. She tolerated regular diet and was ambulatory. She did not complain of any shortness of breath or chest pain. There was no leg pain. She was felt ready for dismissal during the morning of May 27, 2022. She will follow up with Dr. Mix in 6 weeks Labs Laboratory Tests 05/26/22 08:55: White Blood Count 16.4H, Red Blood Count 3.49L, Hemoglobin 10.4L, Hematocrit 31L , Mean Corpuscular Volume 88, Mean Corpuscular Hemoglobin 30, Mean Corpuscular Hemoglobin Concent 34, Red Cell Distribution Width 13.7, Platelet Count 182, M dahlia Platelet Volume 11.7, Immature Granulocyte % (Auto) 1, Neutrophils (%) (Auto) 82H, Lymphocytes (%) (Auto) 11L, Monocytes (%) (Auto) 6, Eosinophils (%) (Auto) 0, Basophils (%) (Auto) 0, Neutrophils # (Auto) 13.5H, Lymphocytes # (Auto) 1.8, Monocytes # (Auto) 0.9, Eosinophils # (Auto) 0.1, Basophils # (Auto) 0.0, Immature Granulocyte # (Auto) 0.1, Percent Immature Platelet Fraction 6.0 Discharge Instructions to patient/family Please see electronic discharge instructions given to patient. Discharge Medications Reviewed and agree with Discharge Medication list on patient's Discharge Instruction sheet Copy Copies To 1: QUANG MIX MD, DANIEL J MD May 27, 2022 08:15
[2022-05-27] MEDS: PRENATAL VITAMIN 1 EA TAB PO SCH (08:55)
[2022-05-27] MEDS: DOCUSATE SODIUM 100 MG (COLACE) CAP PO SCH (08:56)
[2022-05-27 08:59] VITALS: BP 126/70
== END 2022-05-27 11:20 | disposition home or self-care (01) | DRG 807 ==
LOC: WSo 19:48 → LDRP 19:48 → WSo 22:54 → LDRP 22:54 → OBSVTOIN 23:00 → LDRP 05-26 00:45
PROVIDERS: ADMIT Family Medicine; ATTEND Family Medicine
PROC: 10E0XZZ Delivery of Products of Conception, External Approach (ICD-10-PCS; principal; 2022-05-25)
PROC: 0KQM0ZZ Repair Perineum Muscle, Open Approach (ICD-10-PCS; 2022-05-25)
DX: O99.824 Streptococcus B carrier state complicating childbirth (principal); Z37.0 Single live birth; O76 Abnormality in fetal heart rate and rhythm complicating labor and delivery; Z3A.40 40 weeks gestation of pregnancy; O77.0 Labor and delivery complicated by meconium in amniotic fluid; O70.1 Second degree perineal laceration during delivery; O90.81 Anemia of the puerperium; D64.9 Anemia, unspecified
CPT/HCPCS: 36415; 81000; 84112; 85025; 86780; 86850; 86900; 86901; 99213